=== PATIENT | female | born 1980 | race African-American/Black ===

== ENCOUNTER 2021-08-04 23:47 | Emergency (ER) | payer MEDICAID ==
[~2021-08-04] VITALS: Ht 162.6 cm; Wt 105.2 kg
[2021-08-05 00:05] VITALS: BP 144/78
[2021-08-05] MEDS ORDERED: IBUPROFEN 600 MG TAB PO ONE (00:10)
--- NOTE | 2021-08-05 00:11 | NUR ---
Eh shah in [facility] - 08/05/21 at 0012 by TC TO MAURICE FOLLOWING TRIAGE
--- NOTE | 2021-08-05 00:11 | NUR ---
TO LOBBY FOLLOWING TRIAGE
[2021-08-05] MEDS ORDERED: NAPR-54 PO (01:25)
[2021-08-05 01:29] VITALS: BP 144/78
--- NOTE | 2021-08-05 01:29 | NUR ---
SEEN AND DISCHARGED PER DR KELLY. NO NURSING INTERVENTION REQUIRED
== END 2021-08-05 01:29 | disposition home or self-care (01) ==
LOC: MED 23:47
DX: S33.5XXA Sprain of ligaments of lumbar spine, initial encounter (principal); S90.121A Contusion of right lesser toe(s) without damage to nail, initial encounter; Z79.899 Other long term (current) drug therapy; Z98.890 Other specified postprocedural states; W19.XXXA Unspecified fall, initial encounter; Y93.89 Activity, other specified; Y92.89 Other specified places as the place of occurrence of the external cause; Y99.8 Other external cause status
CPT/HCPCS: 72110; 73660; 99284